=== PATIENT | male | born 1995 | race Caucasian/White ===

== ENCOUNTER 2016-05-25 14:35 | Inpatient (IN) | payer OTHER ==
--- NOTE | ~2016-05-25 | DS ---
Unit #: [id number] #: [id number] Patient: MICHELLE TODD [id number] [facility] [address] [place] [address] [id number] MR#: [id number] NAME: MICHELLE TODD ROOM: [facility] Age: 20 Sex: M Admission Date: 05/25/2016 : 1995 Discharge Date: 05/31/2016 Attending Physician: Robin Torre M.D. Primary Care Physician: Generic Doctor Not In System DISCHARGE SUMMARY REASON FOR ADMISSION Depression and anxiety. DIAGNOSTIC STUDIES LABORATORY RESULTS: Unremarkable. HOSPITAL COURSE The patient was admitted to inpatient unit on . The patient was treated with group therapy, individual therapy, and medication management. The patient responded well with the above modalities of treatment and following medications. DISCHARGE MEDICATIONS Celexa 20 mg daily for depression, Vistaril 25 mg t.i.d. for anxiety, and Sinequan 100 mg daily for sleep. DISCHARGE DIAGNOSES Psychiatric: 1. Major depressive disorder, recurrent, severe, F33.2. 2. Alcohol use disorder, moderate. 3. Cannabis abuse disorder, moderate. Secondary diagnosis: Deferred. Medical diagnosis: None. Stressors: Psychosocial stressors. DISCHARGE INSTRUCTIONS The patient is to follow up in outpatient clinic as per social science instructor. CONDITION ON DISCHARGE The patient was pleasant and cooperative. Denied any psychotic symptom or any suicidal ideation. PROGNOSIS Guarded. DIET AND ACTIVITY As tolerated. Dictated by... Robin Torre M.D. Unit #: [id number] #: [id number] Patient: MICHELLE TODD SZC/modl TD: 05/31/2016 21:48 JOB #: [id number] DISCHARGE SUMMARY X Robin Torre MD X DISCHARGE SUMMARY
--- NOTE | ~2016-05-25 | PN ---
Unit #: [id number] #: [id number] Patient: MICHELLE CHRISTIANSON [id number] [facility] [address] [place] [address] [id number] MR#: [id number] NAME: MICHELLE CHRISTIANSON ROOM: [facility] Age: 20 Sex: M Admission Date: 05/25/2016 : 1995 Attending Physician: Robin Torre M.D. Admitting Physician: Robin Torre M.D. Primary Care Physician: Generic Doctor Not In System [facility] PROGRESS NOTES DATE OF SERVICE 05/27/2016 DISCUSSION Michelle Christianson is a 20-year-old male. The patient interviewed, chart reviewed. Obtained information from nursing staff. The patient was compliant, cooperative. Mood sad, dysphoric, flat affect. The patient reports medication is helping some, but still having some symptoms of depression and anxiety, not much improvement. Seclusive, isolative, guarded. Vital Signs: Stable, 97.5, 60, 123/73. The patient, however, denied any suicidal ideation, but passive ideations. Complete Review of Systems: Unremarkable. MENTAL STATUS EXAMINATION General Appearance: The patient dressed casually. Attention span, concentration: Fair. Oriented in place and person. Mood and affect: Sad, dysphoric. Speech: Monotone. Thought process: [place]. The patient denied any thoughts of harming self or others or any psychotic symptom. Recent and remote memory: Poor. Insight and judgment: Poor. DIAGNOSIS Major depressive disorder, recurrent. ASSESSMENT/PLAN Advised to continue with current medication and therapeutic protocol. We will monitor response to medication and make further adjustment of medication. Dictated by... Markell Baxter/chari TD: 05/29/2016 10:21 JOB #: [id number] Unit #: [id number] #: [id number] Patient: MICHELLE CHRISTIANSON JCAOB PROGRESS NOTES X Robin Torre MD PROGRESS NOTE
--- NOTE | ~2016-05-25 | PN ---
Unit #: [id number] #: [id number] Patient: MICHELLE CHRISTIANSON [id number] [facility] [address] [place] [address] [id number] MR#: [id number] NAME: MICHELLE CHRISTIANSON [place] [facility] [place] [facility] [place] Age: 20 Sex: M Admission Date: 05/25/2016 : 1995 Attending Physician: Robin Torre M.D. Admitting Physician: Robin Torre M.D. Primary Care Physician: Generic Doctor Not In System [facility] PROGRESS NOTES DATE OF SERVICE: 05/30/2016 DISCUSSION Jaylon Christianson is a 20-year-old male, seen on 05/30/2016. The patient interviewed, chart reviewed, and obtained information from nursing staff. The patient was compliant and cooperative. Reports mood is getting better, but still having problem with sleep. Complete review of systems unremarkable. MENTAL STATUS EXAMINATION General appearance, the patient dressed casually. Attention span and concentration, fair. Oriented in place and person. Mood and affect, sad and dysphoric. Speech, regular rate. Thought process, goal directed. The patient denied any thoughts of harming self or others or any psychotic symptom. Recent and remote memory, poor. Insight and judgment, poor. DIAGNOSIS Mood disorder, not otherwise specified. ASSESSMENT AND PLAN Advised to continue with current medication with a plan to increase doxepin to 100 mg at bedtime. If needed, consider further adjustment of medication. Dictated by... Markell Baxter/mirian TD: 05/31/2016 12:35 JOB #: [id number] [facility] PROGRESS NOTES X Robin Torre MD PROGRESS NOTE
--- NOTE | ~2016-05-25 | HP ---
Unit #: [id number] #: [id number] Patient: MICHELLE TODD [id number] [place] [address] [id number] MR#: [id number] NAME: MICHELLE TODD ROOM: [facility] [place] Age: 20 Sex: M Admission Date: 05/25/2016 : 1995 Attending Physician: Robin Torre M.D. Admitting Physician: Robin Torre M.D. Primary Care Physician: Generic Doctor Not In System HISTORY AND PHYSICAL HISTORY OF PRESENT ILLNESS Michelle is a 20 year old admitted to [address] [place] [address] because of his polysubstance abuse which includes alcohol and marijuana. PAST MEDICAL HISTORY Long history of polysubstance abuse. PAST SURGICAL HISTORY Nothing reported. ALLERGIES No known drug allergies. SOCIAL HISTORY Smokes less than one-half pack per day. Binge drinks frequently. Admits to using marijuana daily. FAMILY HISTORY Medically noncontributory. REVIEW OF SYSTEMS CONSTITUTIONAL: No fever or chills. HEENT: Denies any sore throat, ear pain or runny nose. CARDIOVASCULAR: Denies chest pain, irregular heart rhythm or palpitations. CHEST: Denies shortness of breath or cough. No hemoptysis. GASTROINTESTINAL: Denies nausea, vomiting, diarrhea or chronic constipation. ENDOCRINE: Denies history of increased thirst or urination. No recent significant weight loss or gain. GENITOURINARY: Denies dysuria, frequency, or hematuria. SKIN: Denies any rashes. HEMATOLOGIC: Denies history of increased bleeding or bruising. MUSCULOSKELETAL: Denies any hot, swollen joints. No generalized muscle pain. NEUROLOGIC: Denies problems with vision or speech. No frequent, severe headaches. No numbness, tingling or weakness in any extremities. Denies loss of bladder or bowel control. CURRENT MEDICATIONS 1. Trazodone 75 mg q.h.s. p.r.n. 2. Milk of Magnesia p.r.n. Unit #: [id number] #: [id number] Patient: MICHELLE TODD 3. Maalox p.r.n. 4. Tylenol p.r.n. PHYSICAL EXAMINATION GENERAL: Alert, well-nourished, in no apparent distress. VITAL SIGNS: Blood pressure 134/78, heart rate 64, respirations 16, temperature 98.6. WEIGHT: 171 pounds. HEIGHT: 5'11". SKIN: Warm and dry without rash or lesion. HEENT: Normocephalic. TMs not viewed. Oral and nasal passages clear. Conjunctivae clear. Pupils equal, round and reactive to light and accommodation. Extraocular movements intact. NECK: Supple without lymphadenopathy or thyromegaly. HEART: Regular rate and rhythm without murmur. LUNGS: Clear. ABDOMEN: Soft, nontender. : Not done. EXTREMITIES: No evidence of cyanosis, clubbing or edema. Moves all extremities without focal deficit. NEUROLOGICAL: Grossly within normal limits. Cranial Nerves: II: Visual galicia are intact. III, IV AND : Extraocular movements are intact. Pupils are equal, round and reactive to light. V: Facial sensation is grossly normal. VII: Facial movements and expression are normal. VIII: Auditory acuity grossly intact. IX, X: Uvula is midline. Phonation is normal. XI: Patient shrugs shoulders and turns head normally. XII: Tongue protrudes in the midline. Sensory and Motor Function: Sensory and motor sensation is grossly normal. Motor: moves all extremities well. Coordination: Gait is normal. Deep Tendon Reflexes: Intact. IMPRESSION Psychiatric admission RECOMMENDATIONS PSYCHIATRIC: Per psychiatrist. MEDICAL: I see no contraindications to participating in facility's activities. MEDICAL PROGNOSIS Good. MEDICAL CONDITION Stable. Dictated by... Yolanda Hall P.A.-C. for Markell Edwards/marty TD: 05/26/2016 04:41 JOB #: [id number] Unit #: [id number] #: [id number] Patient: MICHELLE TODD HISTORY AND PHYSICAL X Yolanda Hall HISTORY AND PHYSICAL
--- NOTE | ~2016-05-25 | PN ---
Unit #: [id number] #: [id number] Patient: MICHELLE CHRISTIANSON [id number] [facility] [address] [place] [address] [id number] I MR#: [id number] NAME: MICHELLE CHRISTIANSON [place]OM: [facility] [place] Age: 20 Sex: M Admission Date: 05/25/2016 : 1995 Attending Physician: Robin Torre M.D. Admitting Physician: Robin Torre M.D. Primary Care Physician: Generic Doctor Not In System [facility] PROGRESS NOTES DATE 05/28/2016 DISCUSSION Michelle Christianson is a 20-year-old male seen on 05/28/2016. The patient interviewed, chart reviewed. Obtained information from nursing staff. The patient was compliant and cooperative. Mood sad, dysphoric, flat affect, guarded. The patient tolerating medication fairly well but reported that the trazodone is not working. Complete review of systems unremarkable. MENTAL STATUS EXAMINATION General appearance, the patient dressed casually. Attention span and concentration fair. Oriented to place and person. Mood and affect sad, dysphoric, anxious. Speech regular rate. Thought process goal directed. Association the patient denied any thoughts of harming self or others but guarded. Recent and remote memory poor. Insight and judgement poor. DIAGNOSES Mood disorder NOS. ASSESSMENT/PLAN Advise to continue with current medication with a plan to discontinue trazodone and start the patient on doxepin 50 mg at bedtime. If needed consider further adjustment of medication. Dictated by... Markell Baxter/marty TD: 06/01/2016 02:03 JOB #: [id number] Unit #: [id number] #: [id number] Patient: MICHELLE CHRISTIANSON PE[facility] PROGRESS NOTES X Robin Torre MD PROGRESS NOTE
--- NOTE | ~2016-05-25 | PA ---
Unit #: [id number] #: [id number] Patient: MICHELLE CHRISTIANSON [id number] [facility] [address] [place] [address] [id number] I MR#: [id number] NAME: MICHELLE CHRISTIANSON ROOM: [facility] Age: 20 Sex: M Admission Date: 05/25/2016 : 1995 Date of Assessment: 05/26/2016 Attending Physician: Robin Torre M.D. Admitting Physician: Robin Torre M.D. Primary Care Physician: Generic Doctor Not In System PSYCHIATRIC ASSESSMENT REASON FOR ADMISSION Depression and anxiety. HISTORY OF PRESENT ILLNESS Jaylon Christianson is a 20-year-old male seen on with the above-mentioned complaint. The patient reported feeling sad, depressed, anxious, nervous. The patient presented with the above-mentioned complaint. Reported history of outpatient treatment for mood disorder, anxiety disorder. He lives at home with mother, brother, sister, and father. The patient reported suicidal ideation to kill himself by overdosing. The patient reported current stressor financial, not working, unable to return to college in third year because of his financial problem. The patient is self medicating with alcohol, marijuana, having feeling of hopelessness, worthlessness, suicidal ideation, therefore needing inpatient admission at this time for psychiatric stabilization. PAST PSYCHIATRIC HISTORY Remarkable for history of outpatient treatment for depression and anxiety, 11/15/2015. FAMILY HISTORY/SOCIAL HISTORY The patient lives with his siblings and parents. Family psychiatric illness is remarkable for history of alcohol and heroin abuse in father, history of methamphetamine and heroin in sister. No history of any abuse. MEDICAL HISTORY Unremarkable for any chronic medical illness. Musculoskeletal; muscle strength and tone, no atrophy or abnormal movement. Gait normal. MEDICATION HISTORY None. ALLERGIES No known drug allergies. SUBSTANCE ABUSE HISTORY The patient reported tobacco use, age of onset 16; alcohol, age of onset 13; marijuana, age of onset 14; history of blackout. No history of any HIV or hepatitis. No history of any withdrawal symptom. History of IV drug use. REVIEW OF SYSTEMS HEENT: Eyes clear. Ears, nose, mouth, and throat clear. Unit #: [id number] #: [id number] Patient: MICHELLE CHRISTIANSON CARDIOVASCULAR: Unremarkable. RESPIRATORY: Unremarkable. GI: Unremarkable. : Unremarkable. SKIN: Unremarkable. LYMPH NODE: Unremarkable. NEUROLOGIC: Unremarkable. ENDOCRINE: Unremarkable. HEMATOLOGIC: Unremarkable. ALLERGIC/IMMUNOLOGIC: Unremarkable. MUSCULOSKELETAL: Muscle strength and tone, no atrophy or abnormal movement. Gait normal. MENTAL STATUS EXAMINATION CONSTITUTIONAL: Measurement of vital signs; temperature is 97.4, heart rate 63, respirations 16, blood pressure 115/75, height 5 feet 11 inches, weight 171 pounds. GENERAL APPEARANCE: The patient is dressed casually. The patient did not show any facial deformity. MUSCULOSKELETAL: Please see above. PSYCHIATRIC EXAMINATION Description of speech; regular rate, normal volume. Description of thought process, goal directed. Description of association, intact. Description of abnormal psychotic thinking; the patient reported having suicidal ideation, hopelessness, substance abuse. Denied any psychotic symptom. Description of the patient's judgment, concerning. Everyday activity, poor. Social situation, poor and concerning. Psychiatric condition, poor. Complete mental status examination; oriented in time, place, and person. Attention span and concentration, fair. Language, able to name object, repeat phrases. Recent and remote memory, fair. Fund of knowledge, fair. Vocabulary, fair. Mood and affect, sad and dysphoric. Insight and judgment, fair to poor. ASSETS AND LIABILITIES Assents; the patient is articulate, able to take care of his ADL. Liability; depression and substance abuse. ADMITTING DIAGNOSES Psychiatric: Major depressive disorder, recurrent, severe, F33.2; alcohol use disorder, moderate, F10.20; cannabis abuse disorder, moderate, F12.20. Secondary diagnosis: Deferred. Medical diagnosis: None. Stressors: Psychosocial stressors. PSYCHIATRIC PLAN, TREATMENT GOAL, AND DISCHARGE PLAN 1. Advised to admit the patient on the inpatient unit. Provide safe, supportive, and structured environment. 2. Ordered labs; CBC, CMP, UA, and UDS. 3. Precaution for aggression, self-harm. 4. The patient is to be monitored for any withdrawal symptom. The patient is to be started on Celexa, trazodone, and Vistaril combination. We will, if needed, consider further adjustment of medication. The Unit #: [id number] #: [id number] Patient: MICHELLE CHRISTIANSON patient is to attend all the programing on the inpatient unit. 5. Treatment goal is to attain euthymic mood, gain insight into his problem, and learn coping skills. 6. Discharge plan; plan is to stabilize the patient and consider followup in outpatient program. ESTIMATED LENGTH OF STAY 5 to 7 days. Dictated by... Markell Baxter/mirian TD: 05/27/2016 04:27 JOB #: [id number] PSYCHIATRIC ASSESSMENT X Robin Torre MD PSYCHIATRIC ASSESSMENT
--- NOTE | ~2016-05-25 | PN ---
Unit #: [id number] #: [id number] Patient: MICHELLE CHRISTIANSON [id number] [facility] [address] [place] [address] [id number] MR#: [id number] NAME: MICHELLE CHRISTIANSON ROOM: [facility] Age: 20 Sex: M Admission Date: 05/25/2016 : 1995 Attending Physician: Robin Torre M.D. Admitting Physician: Robin Torre M.D. Primary Care Physician: Generic Doctor Not In System [facility] PROGRESS NOTES DATE OF SERVICE: 05/29/2016 DISCUSSION Jaylon Christianson is 20-year-old male, seen on 05/29/2016. The patient interviewed, chart reviewed, and obtained information from nursing staff. The patient reports that he was able to sleep good with doxepin. The patient reports making progress, but still sad, depressed, anxious. REVIEW OF SYSTEMS Complete review of systems unremarkable. MENTAL STATUS EXAMINATION General appearance, the patient is dressed casually. Attention span and concentration, fair. Oriented in place and person. Mood and affect, sad, dysphoric, anxious. Speech, regular rate. Thought process, goal directed. The patient denied any thoughts of harming self or others or any psychotic symptom. Recent and remote memory, poor. Insight and judgment, poor. DIAGNOSES Mood disorder, not otherwise specified. ASSESSMENT AND PLAN Advised to continue with current medication and therapeutic protocol. We will monitor response to medication and make further adjustment of medication if needed. Dictated by... Markell Baxter/mirian TD: 05/30/2016 04:31 JOB #: [id number] Unit #: [id number] #: [id number] Patient: MICHELLE CHRISTIANSON PROGRESS NOTES X Robin Torre MD X PROGRESS NOTE
[2016-05-26 09:42] LABS: BASOPHIL% 0.5 % (0-2.5); EOSINOPHIL# 0.2 X10e3 (0-0.7); EOSINOPHIL% 3.2 % (0.0-7.0); HEMATOCRIT 46.2 % (38.0-50.0); HEMOGLOBIN 15.3 gm/dL (13.0-16.0); LYMPHOCYTE# 3.1 X10e3 (1.0-3.5); LYMPHOCYTE% 40.1 % (17.0-45.0); MEAN CELL VOLUME 88.2 FL (83-96); MEAN CORPUSCULAR HEMOGLOBIN 29.3 PG (28-34); MEAN CORPUSCULAR HGB CONC 33.2 g/dL (30-36); MEAN PLATELET VOLUME 11.1 FL (6.5-11.5); MONOCYTE# 0.5 X10e3 (0-1.0); MONOCYTE% 6.3 % (3.0-12.0); NEUTROPHIL# 3.8 X10e3 (1.5-7.1); NEUTROPHIL% 49.9 % (40-75); PLATELET COUNT 156 X10e3 (140-420); RED BLOOD COUNT 5.24 X10e (3.90-5.60); RED CELL DISTRIBUTION WIDTH 12.9 % (11.0-15.5); WHITE BLOOD COUNT 7.7 X10e3 (4.0-10.5)
[2016-05-26 09:45] LABS: DIFF IND YES
[2016-05-26 09:55] LABS: URINE APPEARANCE TURBID; URINE BILIRUBIN NEG (NEG); URINE BLOOD NEG (NEG); URINE COLOR YELLOW; URINE GLUCOSE NEG (NEG); URINE KETONE NEG (NEG); URINE LEUKOCYTE ESTERASE NEG (NEG); URINE NITRATE NEG (NEG); URINE PH 6.5 (5-8); URINE PROTEIN NEG (NEG); URINE SPECIFIC GRAVITY 1.028 (1.003-1.035)
[2016-05-26 09:59] LABS: PLATELET ESTIMATE NORMAL (NORMAL); RBC NORMAL YES
[2016-05-26 10:04] LABS: THYROID STIMULATING HORMONE 3.17 uIU/ml (0.34-5.60)
[2016-05-26 10:13] LABS: FREE THYROXIN (T4) 0.85 ng/dL (0.58-1.64)
[2016-05-26 10:32] LABS: ALBUMIN SERUM 4.5 g/dL (3.5-5.0); ALKALINE PHOSPHATASE 64 U/L (32-92); ALT (SGPT) 26 U/L (10-40); AST (SGOT) 22 U/L (10-42); BILIRUBIN,TOTAL 0.7 mg/dL (0.2-2.0); BLOOD UREA NITROGEN 13 mg/dL (9-23); CARBON DIOXIDE 30 mmol/L (22-31); CHLORIDE 101 mmol/L (100-111); GLOM FILT RATE Estimated ABOVE60 mL/min (>60); GLUCOSE FASTING 100 mg/dL (70-110); POTASSIUM 4.1 mmol/L (3.5-5.1); SODIUM 138 mmol/L (135-145)
[2016-05-26 10:48] LABS: AMPHETAMINE NEG (NEG); BARBITURATES NEG (NEG); BENZODIAZEPINES NEG (NEG); COCAINE NEG (NEG); MARIJUANA NEG (NEG); OPIATES NEG (NEG); TRICYCLIC ANTIDEPRESSANTS NEG (NEG); U METHADONE NEG (NEG)
== END 2016-05-31 09:33 | DRG 885 ==
LOC: P2S 14:35
PROVIDERS: Psychiatry & Neurology Psychiatry
DX: F33.2 Major depressive disorder, recurrent severe without psychotic features (principal); F41.9 Anxiety disorder, unspecified; F10.20 Alcohol dependence, uncomplicated; F12.20 Cannabis dependence, uncomplicated; F17.200 Nicotine dependence, unspecified, uncomplicated
CPT/HCPCS: 80053; 80307; 81003; 84439; 84443; 85025; 86592